=== PATIENT | male | born 1995 ===

== ENCOUNTER 2021-12-15 14:41 | Emergency (ER) | payer BC ==
[2021-12-15] MEDS ORDERED: Meclizine 25 MG Tab PO ONE (15:16)
[2021-12-15] MEDS ORDERED: Diphtheria,Pertussis(Acell),Tetanus Vaccine 0.5 ML Syringe IM ONE (15:18)
== END 2021-12-15 17:08 | disposition home or self-care (01) ==
LOC: MW.ED 14:41
DX: S00.81XA Abrasion of other part of head, initial encounter (principal); R42 Dizziness and giddiness; Z86.16 Personal history of COVID-19; Z23 Encounter for immunization; W22.09XA Striking against other stationary object, initial encounter
CPT/HCPCS: 70450; 72125; 90471; 90715; 99284; A9270